=== PATIENT | male | born 1970 | race Caucasian/White ===

== ENCOUNTER → 2016-11-17 | Outpatient (CLI) | payer OTHER ==
[~2016-11-17] MED LIST: CHOL1000 PO; HYDR200T5 PO; MULT-600 PO
[2016-11-17 13:35] LABS: ALT/SGPT 25 U/L (12-78); AST/SGOT 18 U/L (15-37); BLOOD UREA NITROGEN 17 mg/dl (7-18); BUN/CREATININE RATIO 17.6 (10-20); CALCIUM 8.8 mg/dl (8.5-10.1); CARBON DIOXIDE 27 mmol/L (21-32); CHLORIDE 107 mmol/L (98-107); CHOLESTEROL 178 mg/dl (0-200); CREATININE 0.97 mg/dl (0.60-1.40); GLUCOSE 95 mg/dl (70-99); SODIUM 142 mmol/L (136-145)
[2016-11-17 13:37] LABS: ALB/GLOB RATIO 1.1 (0.9-2); ALKALINE PHOSPHATASE 92 U/L (45-117); HDL CHOLESTEROL 59 mg/dl; LDL CHOLESTEROL CALCULATED 99 mg/dl; TRIGLYCERIDES 99 mg/dl (0-150); VERY LOW DENSITY LIPOPROT CALC 20 mg/dl
== END | disposition home or self-care (01) ==
LOC: C.LABPVFM 08:46
PROVIDERS: ATTEND Family Medicine
DX: E78.5 Hyperlipidemia, unspecified (principal); Z79.899 Other long term (current) drug therapy

== ENCOUNTER → 2017-03-19 | Outpatient (CLI) | payer OTHER ==
[2017-03-19 17:30] LABS: BASO % 0.9 %; BASO ABS # 0.07 K/uL (0-0.2); COMPLETE YES; EOS % 3.3 %; HEMATOCRIT 46.2 % (42-52); IG% 0.3 %; LYMPH ABS # 1.59 K/uL (1.2-3.4); MEAN CELL VOLUME 86.8 fL (80-100); MEAN CORPUSCULAR HEMOGLOBIN 30.1 pg (25-34); MEAN CORPUSCULAR HGB CONC 34.6 g/dl (32-36); MONO % 10.8 %; NEUT % 63.7 %; PLATELET COUNT 229 K/uL (130-400); RED BLOOD COUNT 5.32 M/uL (4.7-6.1); WHITE BLOOD COUNT 7.57 K/uL (4.8-10.8)
== END | disposition home or self-care (01) ==
LOC: C.LABPVFM 15:46
PROVIDERS: ATTEND Family Medicine
DX: R22.1 Localized swelling, mass and lump, neck (principal)

== ENCOUNTER → 2017-03-21 | Outpatient (CLI) | payer OTHER ==
--- NOTE | 2017-03-21 07:47 | DIAGNOSTIC IMAGING REPORT ---
THYROID ULTRASOUND HISTORY: Nodule R22.1 Localized swelling, mass and lump, neck is the best COMPARISON: None. FINDINGS: At the site of clinically palpable nodularity, is a hypoechoic nodule measuring 1.3 x 0.5 cm. Etiology is uncertain. If this persists, fine-needle aspiration would be recommended. IMPRESSION: 1.3 x 0.5 x 0.8 cm hypoechoic nodule posterior neck at the site of palpable nodularity. If this persists, fine-needle aspiration would be indicated. Electronically signed by: Ender Crawford M.D. 03/21/2017 7:46 AM Dictated Date/Time: 03/21/2017 7:43 AM
== END | disposition home or self-care (01) ==
LOC: C.ULTR 06:57
PROVIDERS: ATTEND Family Medicine
DX: R22.1 Localized swelling, mass and lump, neck (principal)

== ENCOUNTER → 2017-04-04 | Outpatient (CLI) | payer OTHER ==
--- NOTE | 2017-04-04 13:58 | DIAGNOSTIC IMAGING REPORT ---
ULTRASOUND-GUIDED FINE-NEEDLE ASPIRATION OF A LEFT CERVICAL NODULE CLINICAL HISTORY: 46-year-old male with palpable left cervical nodule, recently described as decreasing in size; patient on NSAIDS and steroids for history of arthritis. COMPARISON: Correlation made to ultrasound from 03/21/2017. PROCEDURE: Written informed consent was obtained. A timeout was performed to confirm patient identity. The neck was prepped and draped in the usual aseptic fashion. The hypoechoic 1.3 x 1.2 x 0.6 cm nodule located at the left base of the neck appears to be contained within the confines of the left sternocleidomastoid muscle. No demonstrable flow on color Doppler. A total of 4 passes using a 25-gauge needle were made through left cervical nodule under ultrasound guidance. Specimens were given to the on-site pathologist. Only blood and regular lymphocytes were identified by the pathologist. It was felt that sufficient passes had been made through the lesion, and a core biopsy was not sought. The patient tolerated the procedure well. There were no immediate locations. IMPRESSION: Successful ultrasound-guided fine-needle aspiration of a left cervical nodule. Although the patient does not have a history of trauma, this appearance could be seen in the setting of intramuscular hematoma. Alternatively, another benign entity is possible, such as hemangioma. This is felt unlikely to represent a lymph node. If the biopsy is nondiagnostic, follow-up ultrasound in one month recommended to assess for resolution. Electronically signed by: Silvio Pena M.D. 04/04/2017 1:57 PM Dictated Date/Time: 04/04/2017 1:46 PM
== END | disposition home or self-care (01) ==
LOC: C.ULTR 12:35
PROVIDERS: ATTEND Family Medicine
DX: R22.1 Localized swelling, mass and lump, neck (principal)

== ENCOUNTER 2017-06-02 20:49 | Emergency (ER) | payer OTHER ==
[~2017-06-02] VITALS: Ht 172.7 cm; Wt 121.9 kg
[2017-06-02 21:02] VITALS: PULSE 70; TEMP 36.7; O2SAT 95; Ht 172.7 cm; Wt 121.9 kg
[2017-06-02] MEDS ORDERED: GELATIN SPONGE 12-7MM EXT ONE (22:15)
[2017-06-02] MEDS ORDERED: CHOL1000 PO (22:17)
[2017-06-02] MEDS ORDERED: MULT-600 PO (22:17)
[2017-06-02 22:25] VITALS: BP 137/98
[2017-06-02] MEDS ORDERED: HYDR200T5 PO (22:26)
--- NOTE | 2017-06-03 01:20 | EMERGENCY ROOM VISIT NOTE ---
History Report prepared by Stefani: Rashi Martinez Under the Supervision of: Dr. Tristen Lima M.D. First contact with patient: 22:06 Chief Complaint: NOSE BLEED (MINOR) Stated Complaint: NOSE BLEED History of Present Illness The patient is a 46 year old male who presents to the Emergency Room with complaints of bleeding from the left side of his nose starting prior to arrival which has stopped. The patient states that he had a red spot on his nose, and it started bleeding. The patient states that he has been here before for a similar episode. He had to have it stitched previously. The patient states that he does not take any blood thinners, and he does not use Advil regularly. He states that he is not bleeding from anywhere else. Source of History: patient Onset: prior to arrival Position: nose Quality: other (bleeding) Timing: other (stopped) Review of Systems See HPI for pertinent positives & negatives. A total of 4 systems reviewed and were otherwise negative. Past Medical & Surgical Medical Problems: (1) Bleeding from the nose Social History Smoking Status: Never Smoker Marital Status: Occupation Status: employed Current/Historical Medications Scheduled Cholecalciferol (Vitamin D3), 1,000 INTER.UNIT PO DAILY Hydroxychloroquine Sulfate (Plaquenil), 400 MG PO HS Multiple Vitamins W/ Minerals (Mens Multi Vitamin & Mine), 1 TAB PO DAILY Allergies Coded Allergies: No Known Allergies (Unverified , 09/08/13) Physical Exam Vital Signs Date Time Temp Pulse Resp B/P (MAP) Pulse Ox O2 Delivery O2 Flow Rate FiO2 06/02/17 22:25 18 137/98 06/02/17 21:02 36.7 70 20 137/85 95 Room Air Physical Exam Constitutional: Vital signs reviewed. Eyes: Pupils are equal round reactive to light. Conjunctiva are noninjected. ENT: Pinpoint abrasion to the left side of the nose without any bleeding. Multiple visible capillaries to the nose. No epistaxis. Pharynx is clear without erythema or exudate. Mucous membranes are moist. Neck supple without meningeal signs. Neurological: The patient is awake and alert. No focal deficits. Psychiatric: Normal affect. Medical Decision & Procedures Medications Administered Medications (Trade) Dose Ordered Sig/Klaudia Route Start Time Stop Time Status Last Admin Dose Admin Gelatin (Surgifoam Sponge 12-7MM (SMALL)) 1 ea NOW ONCE EXT 06/02/17 22:15 06/02/17 22:16 DC 06/02/17 22:25 1 ED Course 2205: The patient was evaluated in room B11. A complete history and physical exam was performed. 5: Surgifoam Sponge 12-7mm EXT Medical Decision This is a 46-year-old male who presents with bleeding from the left side of his nose. I did perform a limited focused review of portions of the patient's old chart on the electronic medical record. The patient has had no recent pertinent visits to this hospital. I did evaluate the patient as noted above. He did not have any epistaxis. He has multiple visible surface capillaries on his nose and likely scratched one of them causing it to bleed. He did hold pressure and the bleeding stopped. He has no lesion to suture at this time. He has a pinpoint abrasion. He was concerned about rebleeding and so we did apply Surgifoam and a dressing to the nose. He was advised follow up with his doctor. Medication Reconcilliation Current Medication List: was personally reviewed by me Blood Pressure Screening Patient's blood pressure: Elevated blood pressure Blood pressure disposition: Referred to PCP Impression Primary Impression: Skin hemorrhage Scribe Attestation The scribe's documentation has been prepared under my direct and personally reviewed by me in its entirety. I confirm that the note above accurately reflects all work, treatment, procedures, and medical decision making performed by me. Departure Information Dispostion Home / Self-Care Referrals No Doctor, Assigned (PCP) Forms HOME CARE DOCUMENTATION FORM, IMPORTANT VISIT INFORMATION, WORK / SCHOOL INSTRUCTIONS Patient Instructions My [facility] Additional Instructions You have been examined and treated today on an emergency basis only. This is not a substitute for, or an effort to provide, complete comprehensive medical care. It is impossible to recognize and treat all injuries or illnesses in a single emergency department visit. It is therefore important that you follow up closely with your physician. Call as soon as possible for an appointment. Return for worsening symptoms or if you develop rectal bleeding, black or tarry stools, lightheadedness or any other concerning symptoms. If bleeding begins again hold pressure for at least 30 minutes.
== END 2017-06-02 22:26 | disposition home or self-care (01) ==
LOC: C.EDB 20:51
DX: R23.3 Spontaneous ecchymoses (principal)

== ENCOUNTER → 2017-07-01 | Outpatient (CLI) | payer OTHER ==
--- NOTE | 2017-07-01 13:44 | DIAGNOSTIC IMAGING REPORT ---
LEFT KNEE 2 VIEWS CLINICAL HISTORY: Left leg pain. FINDINGS: AP and lateral views of left knee are obtained. No prior studies are available for comparison at the time of dictation. The skeletal structures are well mineralized. No fracture is seen. There is minimal tricompartmental degenerative joint space narrowing. This is greatest at the patellofemoral articulation. A calcified fabella is noted. There is a joint effusion. The overlying soft tissues are within normal limits. IMPRESSION: 1. No acute bony abnormality is seen in the left knee. 2. A small joint effusion is suspected. Electronically signed by: Jerry Servin M.D. 07/01/2017 1:43 PM Dictated Date/Time: 07/01/2017 1:42 PM
== END | disposition home or self-care (01) ==
LOC: C.RADPV 12:33
PROVIDERS: ATTEND Family Medicine Adult Medicine
DX: M79.605 Pain in left leg (principal); M25.462 Effusion, left knee

== ENCOUNTER → 2017-09-05 | Outpatient (CLI) | payer OTHER ==
--- NOTE | 2017-09-05 12:54 | DIAGNOSTIC IMAGING REPORT ---
L LOWER EXT JOINT WITHOUT CLINICAL HISTORY: M25.569 Knee painMedial left knee pain and swelling since Septem pain. Edema. TECHNIQUE: MRI multi axial acquisition. FINDINGS: Signal characteristics of the osseous structures are unremarkable. lateral collateral ligaments are intact. Medial collateral ligament shows a small partial tear at its posterior margin. Bulk of the medial collateral ligament appears intact. There is menisci are considered generally unremarkable. There is mild meniscal fibrillation of the inferior surface posterior horn medial meniscus. A well-defined major meniscal tear is not felt to be present. No significant popliteal cyst. Anterior and posterior cruciate ligaments are intact. There is a very small joint effusion. No evidence for chondromalacia patella. The patellar retinaculum appear intact. COMPARISON STUDY: None IMPRESSION: 1. Small joint effusion. 2. Small partial tear posterior aspect medial collateral ligament. 3. Mild meniscal surface fibrillation inferior surface posterior horn medial meniscus. The above report was generated using voice recognition software. It may contain grammatical, syntax or spelling errors. Electronically signed by: Ender Crawford M.D. 09/05/2017 12:52 PM Dictated Date/Time: 09/05/2017 12:45 PM
== END | disposition home or self-care (01) ==
LOC: C.MRI 11:48
PROVIDERS: ATTEND Family Medicine Adult Medicine
DX: S83.412A Sprain of medial collateral ligament of left knee, initial encounter (principal); M25.462 Effusion, left knee; X58.XXXA Exposure to other specified factors, initial encounter

== ENCOUNTER → 2017-09-13 | Outpatient (CLI) | payer OTHER ==
[2017-09-13 12:57] LABS: BASO % 0.5 %; BASO ABS # 0.04 K/uL (0-0.2); COMPLETE YES; EOS % 1.4 %; IG% 0.6 %; LYMPH % 19.8 %; LYMPH ABS # 1.64 K/uL (1.2-3.4); MEAN CELL VOLUME 87.5 fL (80-100); MEAN CORPUSCULAR HEMOGLOBIN 30.4 pg (25-34); MEAN CORPUSCULAR HGB CONC 34.7 g/dl (32-36); MEAN PLATELET VOLUME 10.3 fL (7.4-10.4); MONO % 9.5 %; NEUT % 68.2 %; PLATELET COUNT 198 K/uL (130-400); RED BLOOD COUNT 5.37 M/uL (4.7-6.1); WHITE BLOOD COUNT 8.28 K/uL (4.8-10.8)
[2017-09-13 13:35] LABS: ALT/SGPT 22 U/L (12-78); CREATININE 0.97 mg/dl (0.60-1.40)
[2017-09-13 13:38] LABS: ALKALINE PHOSPHATASE 96 U/L (45-117); AST/SGOT 14 U/L (15-37)
[2017-09-13 13:53] LABS: CYCLIC CITRULLINATED PEPT IGG < 0.40 U/mL (0-4.99)
[2017-09-17 13:35] LABS: QUANTIFERON NIL 0.03 IU/ML
== END | disposition home or self-care (01) ==
LOC: C.LABPVFM 09-12 10:21
PROVIDERS: ATTEND Internal Medicine
DX: M19.90 Unspecified osteoarthritis, unspecified site (principal)

== ENCOUNTER → 2017-10-25 | Outpatient (CLI) | payer OTHER ==
[2017-10-25 12:29] LABS: HEMATOCRIT 49.3 % (42-52); HEMOGLOBIN 17.2 g/dL (14.0-18.0); MEAN CELL VOLUME 87.1 fL (80-100); MEAN CORPUSCULAR HEMOGLOBIN 30.4 pg (25-34); MEAN CORPUSCULAR HGB CONC 34.9 g/dl (32-36); MEAN PLATELET VOLUME 9.9 fL (7.4-10.4); PLATELET COUNT 254 K/uL (130-400); RED CELL DISTRIBUTION WIDTH CV 13.4 % (11.5-14.5); RED CELL DISTRIBUTION WIDTH SD 42.2 fL (36.4-46.3); WHITE BLOOD COUNT 14.41 K/uL (4.8-10.8)
[2017-10-25 13:16] LABS: ALBUMIN 3.8 gm/dl (3.4-5.0); ALT/SGPT 25 U/L (12-78); CREATININE 0.87 mg/dl (0.60-1.40)
[2017-10-25 13:19] LABS: ALKALINE PHOSPHATASE 95 U/L (45-117); AST/SGOT 11 U/L (15-37); TOTAL PROTEIN 7.5 gm/dl (6.4-8.2)
== END | disposition home or self-care (01) ==
LOC: C.LABPVFM 08:40
PROVIDERS: ATTEND Internal Medicine
DX: M06.4 Inflammatory polyarthropathy (principal)